=== PATIENT | female | born 1995 | race Caucasian/White ===

== ENCOUNTER → 2019-12-04 | Outpatient (CLI) | payer BC ==
[~2019-12-04] MED LIST: ALAVERT10 M1 PO; FLOXIN 5 ML5 ML OT
== END ==
LOC: COL.LAB 14:32
DX: U07.1 COVID-19 (principal)

== ENCOUNTER → 2023-11-09 | Outpatient (CLI) | payer OTHER | LOC: COL.RAD 08:22 | DX: M48.061 Spinal stenosis, lumbar region without neurogenic claudication (principal); M51.26 Other intervertebral disc displacement, lumbar region ==